=== PATIENT | female | born 1960 | race African-American/Black ===

== ENCOUNTER 2017-01-21 15:21 | Emergency (ER) | payer MEDICARE ==
[~2017-01-21 15:21] MED LIST: CLOT1CRE TOP; DESE1CRE EX; DICL50 PO
[2017-01-21 15:35] VITALS: BP 99/54; PULSE 81; RESP 14; TEMP 98.6; O2SAT 99
--- NOTE | 2017-01-21 16:19 | PD ---
HPI Chief Complaint: Medical Clearance Time Seen by Provider: 16:03 Travel History International Travel<30 days: No Contact w/Intl Traveler<30days: No Traveled to known affect area: No History of Present Illness HPI So 56 year-old woman who presents to the emergency department after she was found sleeping on a bus stop and a bystander called EMS. After being awoken she reports that she feels hot and dehydrated. History Past Medical History Medical History: Denies Significant Hx Social History Alcohol Use: Yes (HOLIDAYS) Tobacco Use: No Allergies-Medications (Allergen,Severity, Reaction): Coded Allergies: No Known Allergies (Unverified , 10/27/15) Reported Meds & Prescriptions Reported Meds & Active Scripts Active Clotrimazole 1 % Cre 1 % EX Q12HR 7 Days Lotrimin Cream (Clotrimazole) 15 Gm Cr 1 Applic TOP BID Voltaren (Diclofenac Sodium) 50 Mg Tabec 50 Mg PO TID Review of Systems Except as stated in HPI: all other systems reviewed are Neg Physical Exam Narrative GENERAL: Well-appearing 56 year-old woman, disheveled, nontoxic. SKIN: Focused skin assessment warm/dry. HEAD: Atraumatic. Normocephalic. EYES: Pupils equal and round. No scleral icterus. No injection or drainage. ENT: No nasal bleeding or discharge. Mucous membranes pink and moist. NECK: Trachea midline. No JVD. CARDIOVASCULAR: Regular rate and rhythm. No murmur appreciated. RESPIRATORY: No accessory muscle use. Clear to auscultation. Breath sounds equal bilaterally. GASTROINTESTINAL: Abdomen soft, non-tender, nondistended. Hepatic and splenic margins not palpable. MUSCULOSKELETAL: No obvious deformities. No clubbing. No cyanosis. No edema. NEUROLOGICAL: Awake and alert. No obvious cranial nerve deficits. Motor grossly within normal limits. Normal speech. Data Data Last Documented VS Vital Signs Date Time Temp Pulse Resp B/P (MAP) Pulse Ox O2 Delivery O2 Flow Rate FiO2 01/21/17 15:35 98.6 81 14 99/54 (69) 99 MDM Medical Decision Making Medical Screen Exam Complete: Yes Emergency Medical Condition: Yes Differential Diagnosis Dehydration, homelessness, heat exhaustion Narrative Course Medical decision-making new para 56 year-old woman with complaints of feeling dehydrated. She was given by mouth fluids. She is stable for discharge. She is given resources for homelessness. Diagnosis Primary Impression: Mild dehydration Patient Instructions: General Instructions Additional Instructions: Return to the emergency department for any new or worsening symptoms. Med/Other Pt SpecificInfo: No Change to Meds Disposition: 01 DISCHARGE HOME Condition: Stable Richie Verde MD Jan 21, 2017 16:19
== END 2017-01-21 16:45 | disposition home or self-care (01) ==
LOC: NEPD 15:21
DX: E86.0 Dehydration (principal); Z79.899 Other long term (current) drug therapy
CPT/HCPCS: 99283

== ENCOUNTER 2017-02-06 20:42 | Emergency (ER) | payer MEDICARE ==
[~2017-02-06] VITALS: Ht 165.1 cm; Wt 70.5 kg
[2017-02-06 20:48] VITALS: BP 133/77; PULSE 97; RESP 16; TEMP 98; O2SAT 96
[2017-02-06] MEDS ORDERED: IBUP-232 PO (21:44)
[2017-02-06] MEDS ORDERED: IBUPROFEN 600 MG TAB PO ONE (21:45)
--- NOTE | 2017-02-06 21:47 | PD ---
HPI Chief Complaint: Pain: Acute or Chronic Time Seen by Provider: 21:43 Travel History International Travel<30 days: No Contact w/Intl Traveler<30days: No Traveled to known affect area: No History of Present Illness HPI 56-year-old black female presents to emergency Department with complaints of right ankle pain. She states that she developed pain after walking in [employer] this evening. She states the pain is mild to moderate. Worse with ambulation. She denies any direct trauma. She states that she's had similar pain in the past. No other complaint. PFSH Past Medical History Anemia: Yes Anxiety: Yes Diminished Hearing: No Schizophrenia: Yes Social History Alcohol Use: Yes (HOLIDAYS) Tobacco Use: No Substance Use: No Allergies-Medications (Allergen,Severity, Reaction): Coded Allergies: No Known Allergies (Unverified , 02/06/17) Reported Meds & Prescriptions Reported Meds & Active Scripts Active Clotrimazole 1 % Cre 1 % EX Q12HR 7 Days Lotrimin Cream (Clotrimazole) 15 Gm Cr 1 Applic TOP BID Voltaren (Diclofenac Sodium) 50 Mg Tabec 50 Mg PO TID Review of Systems Except as stated in HPI: all other systems reviewed are Neg Physical Exam Narrative GENERAL: This is a well-nourished, well-developed patient, in no apparent distress. The patient is ambulating freely in examination room. She does not appear to be in any distress whatsoever. SKIN: No rashes, ecchymoses or lesions. Warm and dry. HEAD: Atraumatic. Normocephalic. EYES: PERRL, EOMI, no discharge or injection. No scleral icterus. EARS: Clear NOSE: Nasal turbinates appear normal. THROAT: Mucosa pink and moist. Airway patent. NECK: Trachea midline. supple, moves head freely. LUNGS: Clear to auscultation. CV: Regular in rhythm. ABDOMEN: Soft nontender. EXT: No clubbing cyanosis. Trace bilateral pedal edema. Examination of the right lower extremity patient complains of tenderness to the lateral aspect of the ankle. There is no obvious deformity. No bony tenderness. She has neurovascular intact. Superficial excoriations Data Data Last Documented VS Vital Signs Date Time Temp Pulse Resp B/P (MAP) Pulse Ox O2 Delivery O2 Flow Rate FiO2 02/06/17 20:48 98.0 97 16 133/77 (95) 96 Room Air Orders Orders Ibuprofen (Motrin) (02/06/17 21:45) MDM Medical Decision Making Medical Screen Exam Complete: Yes Emergency Medical Condition: Yes Medical Record Reviewed: Yes Differential Diagnosis MDM: High Differential diagnoses: Fracture, sprain, strain, dislocation, contusion, neurovascular injury Narrative Course Patient's given Motrin 600 mg by mouth. Diagnosis Primary Impression: Right ankle pain Qualified Codes: M25.571 - Pain in right ankle and joints of right foot Patient Instructions: General Instructions Additional Instructions: Rest. Elevation. Ice packs for the next 3 days. Limited activity. Medications as directed Follow-up with an orthopedist or your doctor in one week. Return to the ER if any problems Med/Other Pt SpecificInfo: Prescription(s) given Scripts Ibuprofen (Ibuprofen) 600 Mg Tab 600 MG PO Q8H Y for PAIN, #30 TAB 0 Refills Prov: Steve Tanner MD 02/06/17 Disposition: 01 DISCHARGE HOME Condition: Stable Wilberto Torres Feb 06, 2017 21:47
== END 2017-02-06 21:54 | disposition home or self-care (01) ==
LOC: NEPK 20:42
DX: M25.571 Pain in right ankle and joints of right foot (principal); D64.9 Anemia, unspecified; F41.9 Anxiety disorder, unspecified; F20.9 Schizophrenia, unspecified; Z79.899 Other long term (current) drug therapy
CPT/HCPCS: 99283

== ENCOUNTER 2017-02-08 19:04 | Inpatient (IN) | payer MEDICARE, OTHER ==
[~2017-02-08] VITALS: Ht 167.6 cm; Wt 73.6 kg
[~2017-02-08 19:04] MED LIST changes: +IBUP-232 PO
[2017-02-08 19:26] VITALS: BP 136/90; PULSE 73; RESP 16; TEMP 98.2; O2SAT 100
--- NOTE | 2017-02-08 19:29 | PD ---
HPI Chief Complaint: Psychiatric Symptoms Time Seen by Provider: 19:11 Travel History International Travel<30 days: No Contact w/Intl Traveler<30days: No History of Present Illness HPI Patient is a 56-year-old female brought into the emergency Department under Black act for psychiatric evaluation. According to the Black act report patient is a poor historian, her thought process is disorganized and she could suffer from self-neglect. Patient has a history of schizophrenia she is not taking medications for this. Patient admitted to a history of hallucinations. She denies any suicidal or homicidal ideations. She states that the Lord is her guide. She states that she is a world traveler. She has no physical complaints at this time. [facility], [facility] Past Medical History Anemia: Yes Anxiety: Yes Diminished Hearing: No Schizophrenia: Yes Social History Alcohol Use: Yes (HOLIDAYS) Tobacco Use: No Substance Use: No Allergies-Medications (Allergen,Severity, Reaction): Coded Allergies: No Known Allergies (Unverified , 02/08/17) Reported Meds & Prescriptions Reported Meds & Active Scripts Active Review of Systems Except as stated in HPI: all other systems reviewed are Neg Psychiatric: Positive: Disorder of Thought Physical Exam Narrative GENERAL: Well-developed, well-nourished, well manicured female. SKIN: Warm and dry. HEAD: Atraumatic. Normocephalic. EYES: Pupils equal and round. No scleral icterus. No injection or drainage. ENT: No nasal bleeding or discharge. Mucous membranes pink and moist. NECK: Trachea midline. No JVD. CARDIOVASCULAR: Regular rate and rhythm. RESPIRATORY: No accessory muscle use. Clear to auscultation. Breath sounds equal bilaterally. GASTROINTESTINAL: Abdomen soft, non-tender, nondistended. Hepatic and splenic margins not palpable. MUSCULOSKELETAL: Extremities without clubbing, cyanosis, or edema. No obvious deformities. NEUROLOGICAL: Awake and alert. No obvious cranial nerve deficits. Motor grossly within normal limits. Five out of 5 muscle strength in the arms and legs. Normal speech. PSYCHIATRIC: Appropriate mood and affect; insight and judgment normal. Data Data Last Documented VS Vital Signs Date Time Temp Pulse Resp B/P (MAP) Pulse Ox O2 Delivery O2 Flow Rate FiO2 02/08/17 19:26 98.2 73 16 136/90 (105) 100 Orders Orders Complete Blood Count With Diff (02/08/17 19:11) Comprehensive Metabolic Panel (02/08/17 19:11) Urinalysis - C+S If Indicated (02/08/17 19:11) Psych Screen (02/08/17 19:11) Drug Screen, Random Urine (02/08/17 19:11) MDM Medical Decision Making Medical Screen Exam Complete: Yes Emergency Medical Condition: Yes Medical Record Reviewed: Yes Interpretation(s) Vital Signs Date Time Temp Pulse Resp B/P (MAP) Pulse Ox O2 Delivery O2 Flow Rate FiO2 02/08/17 19:26 98.2 73 16 136/90 (105) 100 Differential Diagnosis Schizophrenia versus bipolar disorder versus depression versus psychosis versus other Narrative Course Patient is a 56-year-old female brought in under [place] due to concern for self neglect, her disorganized thought process, and for being a poor historian. Patient's vital signs are stable, she is refusing any blood work at this time. She is alert and cooperative otherwise. She acknowledges a history of psychiatric illness. She denies any suicidal or homicidal ideations. She denies any previous suicide attempt. Patient is well groomed, alert and appears well. She is medically cleared at this time for psychiatric evaluation. Diagnosis Primary Impression: Medical clearance for psychiatric admission Condition: Stable Bernie Soto Feb 08, 2017 19:29
[2017-02-08 22:36] VITALS: BP 113/72; PULSE 76; RESP 18; O2SAT 97
[2017-02-09 06:40] VITALS: RESP 18
[2017-02-09 10:50] VITALS: BP 143/77; PULSE 75; RESP 18
[2017-02-09 11:55] LABS: BLOOD, URINE NEG (NEG); COMMENT (UR) CULT NOT INDICATED; CULTURE IF INDICATED CULT NOT INDICATED; GLUCOSE,URINE NEG (NEG); KETONE, URINE NEG (NEG); NITRITE,URINE NEG (NEG); PH, URINE 6.5 (5.0-8.5); SQUAMOUS EPITHELIAL CELL URINE 3 /hpf (0-5); URINE COLOR LIGHT-YELLOW (YELLW/STRAW)
[2017-02-09] MEDS ORDERED: ALUMINUM/MAGNESIUM/SIMETH 30 ML CUP PO PRN (14:15)
[2017-02-09] MEDS ORDERED: LORazepam 2 MG/ML VIAL IM PRN (14:15)
[2017-02-09] MEDS ORDERED: MAGNESIUM HYDROXIDE SUSP 30 ML CUP PO PRN (14:15)
--- NOTE | 2017-02-09 14:24 | HHI.HP ---
Provisional Diagnosis Admission Date [place] I. Schizophrenia, disorganized type Certification of Person's Competence To Provide Express and Informed Consent I have personally examined Mellissa Drake , a person being served at [facility] on, Feb 09, 2017 14:13. Express and informed consent means consent voluntarily given in writing, by a competent person, after sufficient explanation and disclosure of the subject matter involved to enable the person to make a knowing and willful decision without any element of force, fraud, deceit, duress, or other form of constraint or coercion. This person is 18 years of age or older, is not now known to be incompetent to consent to treatment with a guardian advocate, and does not have a health care surrogate or proxy currently making medical treatment decisions. I have found this person to be one of the following: [x] Competent to provide express and informed consent, as defined above, for voluntary admission to this facility and is competent to provide express and informed consent for treatment. He/she has the consistent capacity to make well reasoned, willful, and knowing decisions concerning his or her medical or mental health treatment. The person fully and consistently understands the purpose of the admission for examination/placement and is fully capable of personally exercising all rights assured under [place] Incompetent to provide express and informed consent to voluntary admission, and this is incompetent to provide express and informed consent to treatment. The person must be transferred to involuntary status and a petition for a guardian advocate filed with the Circuit Court. [] Refusing to provide express and informed consent to voluntary admission but is competent to provide express and informed consent for treatment. The person must be discharged or transferred to involuntary status. Form shall be completed within 24 hours of a person's arrival at the receiving facility and filed in the clinical record of each person: 1. Admitted on a voluntary basis 2. Permitted to provide express and informed consent to his/her own treatment 3. Allowed to transfer from involuntary to voluntary status 4. Prior to permitting a person to consent to his or her own treatment after having been previously found incompetent to consent to treatment. History of Present Illness Capacity: Has Capacity HPI 56-year-old female brought in under a Black act for inability to care for self. Patient remains a poor historian. She does admit to a history of schizophrenia and has been previously treated in [place]. She states she came to [place] approximately one year ago and came to [place] approximately one month ago. She does describe herself as a "world traveler". However, she continues to exhibit looseness of associations and is unable to provide reasonable explanations as to why she travels, where she lives, how she lives, her family is, etc. She does state if she continues to travel the world , she will eventually run into "a cousin". She also admits to having taken Seroquel in the past. Finally, she would like case management but is otherwise unable to determine how she will take care of herself. She does deny the use of alcohol and drugs. Review of Systems Except as stated in HPI: all other systems reviewed are Neg Past Psych History Psychological trauma history Unknown regarding psychological trauma but the patient has been admitted for psychiatric reasons previously. Violence risk - others (6 mos) Minimal risk of violence towards others. Violence risk - self (6 mos) Unable to care for self and high risk of violence to self. Substance Abuse History Drugs/Alcohol past 12 months Denied Past Family Social History Coded Allergies: No Known Allergies (Unverified , 02/08/17) Discontinued Scripts Ibuprofen (Ibuprofen) 600 Mg Tab, 600 MG PO Q8H Y for PAIN, #30 TAB 0 Refills Prov:Steve Tanner MD 02/06/17 Clotrimazole (Topical) (Clotrimazole) 1 % Cre, 1 % EX Q12HR for 7 Days, TUBE Prov:Shahid Skinner MD 10/13/15 Clotrimazole (Topical) (Lotrimin Cream) 15 Gm Cr, 1 APPLIC TOP BID, #1 TUBE Prov:Marilee Balderas MD 10/06/15 Diclofenac Sod (Voltaren) 50 Mg Tabec, 50 MG PO TID, #21 TAB Prov:Marilee Balderas MD 09/07/15 Family History Unknown. Social History Patient is homeless. Unable to name the numbers or names of any family members. She does not work. She does apparently receives some form of Medicare /Social Security disability. She does not have a history of alcoholism or substance abuse. Patient's Strengths (min. 2) Resilient and has access to healthcare. Physical Exam GENERAL: SKIN: Warm and dry. HEAD: Normocephalic. EYES: No scleral icterus. No injection or drainage. NECK: Supple, trachea midline. No JVD or lymphadenopathy. CARDIOVASCULAR: Regular rate and rhythm without murmurs, gallops, or rubs. RESPIRATORY: Breath sounds equal bilaterally. No accessory muscle use. GASTROINTESTINAL: Abdomen soft, non-tender, nondistended. MUSCULOSKELETAL: No cyanosis, or edema. BACK: Nontender without obvious deformity. No CVA tenderness. Vital Signs Vital Signs Date Time Temp Pulse Resp B/P (MAP) Pulse Ox O2 Delivery O2 Flow Rate FiO2 02/09/17 10:50 75 18 143/77 (99) Room Air 02/08/17 22:36 97 02/08/17 19:26 98.2 Lab Results Test 02/09/17 11:22 Urine Color LIGHT-YELLOW Urine Turbidity CLEAR Urine pH 6.5 Urine Specific [place] 1.014 Urine Protein NEG mg/dL Urine Glucose (UA) NEG mg/dL Urine Ketones NEG mg/dL Urine Occult Blood NEG Urine Nitrite NEG Urine Bilirubin NEG Urine Urobilinogen LESS THAN 2.0 MG/DL Urine Leukocyte Esterase TRACE Urine RBC LESS THAN 1 /hpf Urine WBC LESS THAN 1 /hpf Urine Squamous Epithelial Cells 3 /hpf Microscopic Urinalysis Comment CULT NOT INDICATED Urine Opiates Screen NEG Urine Barbiturates Screen NEG Urine Amphetamines Screen NEG Urine Benzodiazepines Screen NEG Urine Cocaine Screen NEG Urine Cannabinoids Screen NEG Mental Status Examination Speech: Hesitant Orientation: Person, Place Memory: Unremarkable Thought Process: Loose Association Thought Content: Bizarre thinking Hallucination Type: None Attention and Concentration: Abnormal Suicidal Ideation: No Previous Suicide Attempts: No Homicidal Ideation: No Previous Homicide Attempts: No Insight: Poor Judgment: Unrealistic Affect: Anxious Affect if Inappropriate: Blunt Mood: Anxious Motor Activity: Normal gait Assessment & Plan Problem List: (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 56-year-old female under a Black act for inability to care for self. Patient has a history of schizophrenia and she is not currently being treated for it. She is a poor historian and demonstrates loose associations. She is living on the [address] and is unable to provide information about living arrangements, medications, money, etc. This physician feels the patient is at significant risk for either self-harm or self-neglect and she is therefore being admitted. The patient will receive a CBC and comprehensive metabolic panel to determine if any infectious process or metabolic process is causing or contributing to the patient's confusion and psychosis. We will also obtain thyroid stimulating hormone levels, vitamin B-12 and vitamin D levels to determine if any deficiencies in this area are causing or contributing to her psychosis and disorganization. She will receive an EKG to determine her cardiac conduction status prior to receiving antipsychotic or other psychotropic medications. This physician is also asking for case management to be involved, both for information gathering and to assist the patient with disposition planning. This physician did speak with the patient's nurse, Jordyn, regarding her disorganized thought process. Finally, this physician is interested in obtaining a occupational therapy consult to determine a baseline functionality prior to disposition. Donell Hinojosa MD Feb 09, 2017 14:24
[2017-02-09 15:17] VITALS: BP 138/81; PULSE 72; RESP 18; O2SAT 100
[2017-02-09 17:03] VITALS: BP 125/64; PULSE 67; RESP 18; TEMP 97.9; O2SAT 99
[2017-02-09] MEDS: LORazepam 1 MG TAB PO PRN (23:13)
[2017-02-10 06:19] VITALS: BP 130/66; PULSE 78; RESP 15; TEMP 97.4; O2SAT 100
[2017-02-10] MEDS: LORazepam 1 MG TAB PO PRN (09:38)
--- NOTE | 2017-02-10 13:16 | HHI.PYPN ---
Subjective Remarks Pt seen and discussed with staff. Chart reviewed. Pt was agitated earlier this morning (yelling at water) and received ativan x1 dose. She is now calm and cooperative. She remains paranoid ands somewhat disorganized but is able to give hx of previous diagnosis of schizophrenia. She reports that she took seroquel in the past and it helped with depression. She denied any side effects in the past and states it was helpful in the past. "I took it for a long time". She c/o of poor sleep and high anxiety. No SI/HI. Pt states that she wants to leave hospital and presses for discharge. Objective Alert: Yes [place]: Person, Place, Situation Mood: Calm Affect: Flat Memory Intact: Immediate, Recent Hallucinations: Auditory Delusions: Yes Delusion Type: Paranoid Suicidal: Ideation (denies) Homicidal: Ideation (denies) Insight/Judgment limited Remarks disheveled Vitals/IOs Vital Signs Date Time Temp Pulse Resp B/P (MAP) Pulse Ox O2 Delivery O2 Flow Rate FiO2 02/10/17 06:19 97.4 78 15 130/66 (87) 100 02/09/17 15:17 Room Air Assessment & Plan Problem List: (1) Chronic disorganized schizophrenia ICD Codes: F20.1 - Disorganized schizophrenia Assessment & Plan Start seroquel trial for psychosis. Will place on involuntary due to pt refusing to stay voluntarily in hospital, but as of now pt can consent to medications. Will order 2nd opinion. Estimated LOS: days Justification for Cont. Inpt. impairments in self care. Laura Pearson MD Feb 10, 2017 13:16
--- NOTE | 2017-02-10 16:33 | EKG ---
Date Performed: 02/10/2017 Time Performed: 08:52:28 PTAGE: 56 years EKG: Sinus rhythm WITH SINUS ARRHYTHMIA POSSIBLE LEFT ATRIAL ENLARGEMENT LOW QRS VOLTAGE IN PRECORDIAL LEADS Compared to prior tracing no significant change BORDERLINE ECG PREVIOUS TRACING : 10/06/2015 01.06 DOCTOR: Donell Lemus Interpretating Date/Time 02/10/2017 16:32:37
[2017-02-10 18:00] VITALS: BP 135/83; PULSE 78; RESP 17; TEMP 97.9; O2SAT 100
[2017-02-10] MEDS ORDERED: QUEtiapine FUMARATE 100 MG TAB PO SCH (21:00)
--- NOTE | 2017-02-11 13:19 | HHI.PYPN ---
Subjective Remarks Pt seen and discussed with staff. She took seroquel yesterday evening and has been more calm and less labile today. Thought process is more organized. She attended to ADLs today. She remains paranoid and has been pressing for discharge , stating that she has important business. Sleep improved but still experiencing awakening throughout the night. No medication side effects. NO SI/ HI Objective Alert: Yes [place]: Person, Place, Date, Situation Mood: Other (irritable) Affect: Restricted Memory Intact: Immediate, Recent Hallucinations: Auditory Delusions: Yes Delusion Type: Paranoid Suicidal: Ideation (denies) Homicidal: Ideation (denies) Insight/Judgment poor Vitals/IOs Vital Signs Date Time Temp Pulse Resp B/P (MAP) Pulse Ox O2 Delivery O2 Flow Rate FiO2 02/10/17 18:00 97.9 78 17 135/83 (100) 100 02/09/17 15:17 Room Air Assessment & Plan Problem List: (1) Chronic disorganized schizophrenia ICD Codes: F20.1 - Disorganized schizophrenia Assessment & Plan Pt improving. Will continue seroquel titration. Estimated LOS: days Justification for Cont. Inpt. impairments in reality testing. Laura Pearson MD Feb 11, 2017 13:19
[2017-02-11] MEDS: LORazepam 1 MG TAB PO PRN (20:34)
[2017-02-11] MEDS: ACETAMINOPHEN 325 MG TAB PO PRN (20:37)
[2017-02-11] MEDS ORDERED: QUEtiapine FUMARATE 200 MG TAB PO SCH (21:00)
[2017-02-12 05:54] VITALS: BP 136/65; PULSE 68; RESP 16; TEMP 97.4; O2SAT 100
--- NOTE | 2017-02-12 09:32 | HHI.PYPN ---
Subjective Remarks Patient seen and examined with counselor and nurse. Chart reviewed. Case discussed with nursing staff. On my examination today, the patient presents as mildly irritable but not aggressive or combative. She is a somewhat vague and guarded historian. 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 Hallucinations to myself." She insists, however, that her mental illness issues are in her past, and she denies SI/HI/ AVH now. She is willing to accept psychotropic medications. She says her main purpose in being in the hospital is to get case management services as she is presently homeless. Denies side effects from medications. Denies physical complaints. She tells me that she is willing to remain on the unit voluntarily. Review of Systems ROS Limitations: Poor Historian Except as stated in HPI: all other systems reviewed are Neg Objective Alert: Yes [place]: Person, Place, Date Mood: Other (somewhat irritable) Affect: Restricted Memory Intact: Comment (not formally assessed) Hallucinations: Other (Denies AVH) Delusions: Yes Delusion Type: Other (guarded) Suicidal: Ideation (Denies SI) Homicidal: Ideation (Denies HI) Insight/Judgment Poor Remarks No motor abnormalities noted. Thought process linear. Grooming and hygiene fair. Labs Labs reviewed. Patient refused labs this morning per nursing staff. 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 Patient is tolerating current dose well without side effects. Continue to monitor on an inpatient unit. Continue other medications and care as ordered. Patient may sign voluntary and consent for medications. Justification for Cont. Inpt. Medication changes Discharge Planning Patient appears to be improving with current therapy. Anticipate discharge within the next few days. Neftali Taylor disease case manager to see for case management requests. Request HC Surrog/Guard Advoc?: No Shankar Graham MD Feb 12, 2017 09:32
[2017-02-12 16:58] VITALS: BP 110/64; PULSE 67; RESP 18; TEMP 98; O2SAT 98
[2017-02-12] MEDS: ACETAMINOPHEN 325 MG TAB PO PRN (20:37)
[2017-02-12] MEDS: LORazepam 1 MG TAB PO PRN (20:37)
[2017-02-12] MEDS ORDERED: QUEtiapine FUMARATE 300 MG TAB PO SCH (21:00)
[2017-02-13] MEDS: ACETAMINOPHEN 325 MG TAB PO PRN (00:52)
[2017-02-13 06:14] VITALS: BP 128/72; PULSE 63; RESP 18; TEMP 97; O2SAT 100
--- NOTE | 2017-02-13 10:48 | PD.TTN ---
Patient Problems 1. Discharge planning 2. Medication compliance 3. Knowledge deficit 4. Lack of coping skills Progress Toward Goals Provider Present: Dr. Jared Graham Provider Input: Pt medication regiment will be evaluated if she agrees to continue treatment as she has suggested that she possibly wishes to be discharged. Nurse(s) Present: Deanna Wall RN Nurse(s) Input: Pt appears entitled, somatically focused, agitated at times and with bizarre thoughts. Psychiatric Counselors Present: MICKEY Burgos Psych Therapist Input: Pt appears calm, cooperative, appropriate, organized and oriented. Insight into condition and need for care appears limited. No noted agitation or aggression. Thought content appears bizarre at times regarding payee in particular. Use of coping skills is unknown as pt will not discuss such topics as she is poorly motivated for treatment. Group Spec/RT/OT/SPARKS Present: BRIDGER Flower Group Spec/RT/OT/SPARKS Input: Pt does not attend groups. Discharge Plan SMA, Homeless plan Documentation Scribe: MICKEY Burgos Jonathan LMHC Feb 13, 2017 10:48
[2017-02-13] MEDS ORDERED: QUET1TAB10 PO (12:59)
--- NOTE | 2017-02-13 12:59 | HHI.DS ---
Psychiatry Discharge Summary Inpatient Psychiatric care?: Yes Advance Directive: No Reason Not Provided: Due to Patient Condition Mental Health AdvanceDirective: No Health Care Proxy: No Admission Admission Date Feb 09, 2017 at 14:12 Admission Diagnosis: (1) Chronic disorganized schizophrenia ICD Code: F20.1 - Disorganized schizophrenia Brief History 56-year-old female brought in under a Black act for inability to care for self. Patient remains a poor historian. She does admit to a history of schizophrenia and has been previously treated in [place]. She states she came to [place] approximately one year ago and came to [place] approximately one month ago. She does describe herself as a "world traveler". However, she continues to exhibit looseness of associations and is unable to provide reasonable explanations as to why she travels, where she lives, how she lives, her family is, etc. She does state if she continues to travel the world , she will eventually run into "a cousin". She also admits to having taken Seroquel in the past. Finally, she would like case management but is otherwise unable to determine how she will take care of herself. She does deny the use of alcohol and drugs. Tobacco Use In Past 30 Days: Cognitive Impairment Alcohol Use: Never Hospital Course Patient was admitted to a locked, inpatient psychiatric unit. Appropriate precautions were in place throughout patient's hospital stay. Patient was seen and examined on the unit by psychiatry and also visited by counselor. Psychotropic medications were adjusted. Patient tolerated medications well without side effects. Patient had improvement in presenting psychiatric symptoms during the course of her hospital stay. There was no evidence of any suicidality or homicidality on the inpatient unit. The patient's behavior improved somewhat with the benefit of psychopharmacologic treatment, although even on discharge she was noted to be somewhat demanding and abrasive. There has been no evidence of any significant self-care deficit on the inpatient unit. On the day of discharge: Patient seen and examined. Chart reviewed. Case discussed in treatment team. No significant behavioral disturbances noted overnight. On my examination today, the patient is requesting discharge from the inpatient psychiatric unit. She denies any suicidal or homicidal ideation, intent or plan on direct questioning and contracts for safety. Mood is fair and I can elicit no depressive or hypomanic/manic symptoms. She denies any audiovisual hallucinations, and I can elicit no delusional beliefs, although the patient did describe what sound like some chronic, perhaps fixed paranoid delusions to the counselor. She denies side effects from medications. She is agreeable to following up with outpatient mental health providers. She does have a loose tooth that she would like tended to but otherwise offers no physical complaints. Weighing the acute, chronic, and protective factors and based on the available evidence, I chief executive to a reasonable degree of medical certainty that the patient is at low imminent risk of harm to self or others from a mental illness as defined under the Black act, and her level of function appears adequate for outpatient care. I have recommended that she remain on the unit for additional stabilization but she has declined. I have no basis to retain the patient involuntarily at this time. Patient to be discharged today with psychiatric follow-up as arranged by counselor. Patient also to follow-up with primary care and with dentistry. I have counseled the patient regarding warning signs for need to return to the psychiatric emergency room as part of the general safety plan. Results Blood Pressure 128 / 72 Vital Signs Date Time Temp Pulse Resp B/P (MAP) Pulse Ox O2 Delivery O2 Flow Rate FiO2 02/13/17 06:14 97.0 63 18 128/72 (90) 100 02/09/17 15:17 Room Air Laboratory Tests Test 02/09/17 11:22 Urine Color LIGHT-YELLOW Urine Turbidity CLEAR Urine pH 6.5 Urine Specific [place] 1.014 Urine Protein NEG mg/dL Urine Glucose (UA) NEG mg/dL Urine Ketones NEG mg/dL Urine Occult Blood NEG Urine Nitrite NEG Urine Bilirubin NEG Urine Urobilinogen LESS THAN 2.0 MG/DL Urine Leukocyte Esterase TRACE Urine RBC LESS THAN 1 /hpf Urine WBC LESS THAN 1 /hpf Urine Squamous Epithelial Cells 3 /hpf Microscopic Urinalysis Comment CULT NOT INDICATED Urine Opiates Screen NEG Urine Barbiturates Screen NEG Urine Amphetamines Screen NEG Urine Benzodiazepines Screen NEG Urine Cocaine Screen NEG Urine Cannabinoids Screen NEG Summary of Procedures None done Imaging None done Pending results at discharge: No Medications # of Antipsychotic meds at D/C: 1 Approp Antipsych med options 1 - Minimum of three failed multiple trials of monotherapy. 2 - Documented plan to taper to monotherapy due to previous use of multiple meds OR cross-taper in progress at D/C. 3 - Documentation of augmentation of Clozapine. 4 - Justification other than those listed in allowable values 1-3, document here : Discharge Discharge Date: Feb 13, 2017 Discharge Diagnosis: (1) Undifferentiated schizophrenia Diagnosis: Principal ICD Code: F20.3 - Undifferentiated schizophrenia Mental Status Exam at Disch Patient is in hospital attire. Patient is fairly well groomed and maintaining basic hygiene. Patient is awake and alert and oriented person and hospital at least. No evidence of delirium. No motor abnormalities appreciated. Speech is within normal limits for rate, tone, volume. Language and fund of knowledge average. Focus and concentration intact. Memory grossly intact on clinical exam. Mood is fair. Affect is blunted. Thought process linear. No delusions elicited. Denies audiovisual hallucinations and does not appear internally stimulated. Denies suicidal or homicidal ideation, intent, or plan and contracts for safety. Insight and judgment seem fair to poor at best. Pt Condition on Discharge: Stable Discharge Disposition: Discharge Home Discharge Instructions Diet Instructions: As Tolerated, No Restrictions Activities you can perform: Weight Bearing as Deyanira Scheduled Appointment: as per counselor's notes New Medications: Quetiapine (Quetiapine) 300 Mg Tab 300 MG PO HS for Mental Health for 15 Days, TAB 1 Refill Discharge Time <= 30 minutes Discharge/Advance Care Plan Health Problems: (1) Undifferentiated schizophrenia Goals to promote your health * To prevent worsening of your condition and complications * To maintain your health at the optimal level Directions to meet your goals Take your medications as prescribed Follow your dietary instruction Follow activity as directed Keep your appointments as scheduled Take your immunizations and boosters as scheduled If your symptoms worsen call your PCP, if no PCP go to Urgent Care Center or Emergency Room For 11/12 questions related to your inpatient stay or results of tests pending at discharge, please contact Dr. Shankar Graham at Smoking is Dangerous to Your Health. Avoid second hand smoking Shankar Graham MD Feb 13, 2017 12:59
== END 2017-02-13 16:28 | disposition home or self-care (01) | DRG 885 ==
LOC: NEPD 19:04 → NEDA 02-09 14:12 → H270 02-09 15:43
PROVIDERS: ADMIT Psychiatry & Neurology Psychiatry; ATTEND Psychiatry & Neurology Psychiatry
DX: F20.3 Undifferentiated schizophrenia (principal); Z59.0 Homelessness; F41.9 Anxiety disorder, unspecified
CPT/HCPCS: 80307; 81001; 93005; J2060

== ENCOUNTER 2017-04-03 13:26 | Inpatient (IN) | payer MEDICARE ==
[~2017-04-03] VITALS: Ht 162.6 cm; Wt 74.2 kg
[~2017-04-03 13:26] MED LIST changes: -CLOT1CRE TOP; -DESE1CRE EX; -DICL50 PO; -IBUP-232 PO; +QUET1TAB10 PO
[2017-04-03] MEDS ORDERED: ALUMINUM/MAGNESIUM/SIMETH 30 ML CUP PO PRN (17:30)
[2017-04-03] MEDS ORDERED: MAGNESIUM HYDROXIDE SUSP 30 ML CUP PO PRN (17:30)
[2017-04-03] MEDS ORDERED: ACETAMINOPHEN 325 MG TAB PO PRN (17:30)
[2017-04-03 17:53] VITALS: BP 107/73; PULSE 67; RESP 17; TEMP 97.4; O2SAT 95
[2017-04-03] MEDS ORDERED: ZYPR5TAB PO (17:58)
[2017-04-04] MEDS: NICOTINE 21 MG/24 HR PATCH T-DERMAL SCH (09:00)
[2017-04-04] MEDS: REMOVE OLD PATCH T-DERMAL SCH (09:00)
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
[2017-04-04] MEDS ORDERED: ARIPiprazole 10 MG TAB PO SCH (09:15)
[2017-04-04] MEDS ORDERED: guaiFENesin E.R. 600 MG TAB PO PRN (11:15)
[2017-04-04 11:46] LABS: ANION GAP 7 MEQ/L (5-15); BICARBONATE 30.6 MEQ/L (21.0-32.0); BLOOD UREA NITROGEN 21 MG/DL (7-18); CHLORIDE 104 MEQ/L (98-107); GLOMERULAR FILTRATION RATE 69 ML/MIN (>89); POTASSIUM 3.9 MEQ/L (3.5-5.1); SODIUM (NA) 142 MEQ/L (136-145)
[2017-04-04 11:48] LABS: LDL CHOLESTEROL 138 MG/DL (0-99)
[2017-04-04 14:49] LABS: TRANSFERRIN IRON PROFILE 266 MG/DL (200-360)
[2017-04-04 14:51] LABS: FERRITIN 60 NG/ML (8-252)
[2017-04-04] MEDS: LORazepam 1 MG TAB PO PRN (15:03)
[2017-04-04 16:50] VITALS: BP 121/65; PULSE 69; RESP 18; TEMP 97.6; O2SAT 98
[2017-04-04 17:11] LABS: HEMOGLOBIN A1a 1.2 %; HEMOGLOBIN A1b 1.8 %; HEMOGLOBIN LA1C 2.1 %
--- NOTE | 2017-04-05 08:05 | HHI.PYPN ---
Subjective Chief Complaint: "I need to be stabilized on meds." Remarks Patient seen and examined with nurse. Chart reviewed. Case discussed with nursing staff. Patient noted to be bizarre, irritable and argumentative with peers on the unit. On my examination today, the patient is guarded. She is quite distracted and still appears to be responding to internal stimuli. She denies any SI or HI but it is not clear that she is reliable to contract for safety. She denies side effects from medications. No physical complaints. She is starting to be discharge focused, but I have encouraged her to remain on the unit for stabilization and to address some of her social issues as we are able, and I have asked the counselor to work with her on these issues. Review of Systems ROS Limitations: Psychotic, Poor Historian Except as stated in HPI: all other systems reviewed are Neg Mental Status Examination Appearance: Disheveled (remains fairly disheveled) Consciousness: Alert Orientation: x4 Motor Activity: Normal gait Speech: Unremarkable, Other (rambling) Language: Adequate Fund of Knowledge: Adequate Attention and Concentration: Easily Distracted Memory: Impaired (perhaps some degree of confabulation) Mood: Appropriate Affect: Blunt (remains blunted) Thought Process & Associations: Circumstantial Thought Content: Bizarre thinking Hallucination Type: Other (Again denies AVH but appears int stim) Delusion Type: Other (Remains guarded) Suicidal Ideation: No (unreliable to contract for safety) Homicidal Ideation: No Insight: Fair Judgment: Impulsive Results Labs Test 04/04/17 10:10 Blood Urea Nitrogen 21 MG/DL Creatinine 1.00 MG/DL Random Glucose 72 MG/DL Calcium Level 9.5 MG/DL Sodium Level 142 MEQ/L Potassium Level 3.9 MEQ/L Chloride Level 104 MEQ/L Carbon Dioxide Level 30.6 MEQ/L Anion Gap 7 MEQ/L Estimat Glomerular Filtration Rate 69 ML/MIN Hemoglobin A1c 6.2 % Iron Level 37 MCG/DL Total Iron Binding Capacity 372 MCG/DL Percent Iron Saturation 9.9 % Ferritin 60 NG/ML Triglycerides Level 79 MG/DL Cholesterol Level 240 MG/DL LDL Cholesterol 138 MG/DL HDL Cholesterol 86.0 MG/DL Cholesterol/HDL Ratio 2.79 RATIO Labs reviewed. Awaiting follow-up CBC, but iron studies are suggestive of some degree of iron deficiency and patient was anemic at outside hospital. Vitals/IOs Vital Signs Date Time Temp Pulse Resp B/P (MAP) Pulse Ox O2 Delivery O2 Flow Rate FiO2 04/04/17 16:50 97.6 69 18 121/65 (83) 98 Assessment & Plan Problem List: (1) Undifferentiated schizophrenia ICD Codes: F20.3 - Undifferentiated schizophrenia Assessment & Plan Titrate Abilify to 15mg daily to target psychotic symptoms. Initiate iron supplement and follow-up CBC. Continue to monitor on the high acuity unit. Continue other meds and care as ordered. Justification for Cont. Inpt. Make changes. Impairment in reality construction. Risk for decompensation in less restrictive environment. Discharge Planning Pending psychiatric stabilization. Request HC Surrog/Guard Advoc?: No Shankar Graham MD Apr 05, 2017 08:05
[2017-04-05] MEDS: ARIPiprazole 15 MG TAB PO SCH (08:51)
[2017-04-05] MEDS: NICOTINE 21 MG/24 HR PATCH T-DERMAL SCH (09:00)
[2017-04-05] MEDS: REMOVE OLD PATCH T-DERMAL SCH (09:00)
--- NOTE | 2017-04-05 16:21 | EKG ---
Date Performed: 04/04/2017 Time Performed: 13:57:42 PTAGE: 57 years EKG: Sinus rhythm NORMAL ECG PREVIOUS TRACING : 02/10/2017 08.52 Compared to prior tracing no significant change DOCTOR: Lydia Mensah Interpretating Date/Time 04/05/2017 16:20:10
[2017-04-05] MEDS: FERROUS SULFATE 325 MG (65 MG ELEMENTAL IRON) TAB PO SCH (16:22)
[2017-04-06] MEDS: ARIPiprazole 15 MG TAB PO SCH (09:00)
[2017-04-06] MEDS: REMOVE OLD PATCH T-DERMAL SCH (09:00)
[2017-04-06] MEDS: NICOTINE 21 MG/24 HR PATCH T-DERMAL SCH (09:00)
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
--- NOTE | 2017-04-06 10:56 | PD.TTN ---
Patient Problems 1. Discharge planning 2. Medication compliance 3. Knowledge deficit 4. Lack of coping skills Progress Toward Goals Provider Present: Dr. Jared Graham Provider Input: Pt medication regiment will continue to be evaluated with likely changes including adjustment to Abilify. Nurse(s) Present: Anne-Marie Eden RN Nurse(s) Input: Pt continues to appear paranoid, particular with medications, anxious and easily agitated on unit. Psychiatric Counselors Present: MICKEY Burgos Psych Therapist Input: Pt appears easily agitated, to be responding to internal stimuli, guarded, paranoid, discharge focused and demanding. Pt presents with limited insight into condition and need for care. She struggles with coping and emotional regulation skills though she has been able to avoid any acts of aggression. Pt appears to minimize symptom presentation as a means of achieving discharge. She appears poorly engaged in therapeutic interactions. Pt states that she prefers to remain homeless and asks simply to be transported to [place] so that she may be homeless there. Discharge planning will continue to be discussed. Group Spec/RT/OT/SPARKS Present: ANDREA Logan Group Spec/RT/OT/SPARKS Input: Pt is unable to tolerate the group activities at this time. Pt is rude to staff and peers. Discharge Plan SMA, Other Pt reports that she plans to remain homeless at this time. She will be linked with outpatient psychiatric and medical follow up appointments. She will be provided with assistance with medication being filled as well. She will be [facility] to [facility] as well. Documentation Scribe: MICKEY Burgos Jonathan LMHC Apr 06, 2017 10:56
[2017-04-06] MEDS: FERROUS SULFATE 325 MG (65 MG ELEMENTAL IRON) TAB PO SCH ×2 (12:08→16:51)
[2017-04-06] MEDS: QUEtiapine FUMARATE 200 MG TAB PO SCH (21:15)
[2017-04-07] MEDS: NICOTINE 21 MG/24 HR PATCH T-DERMAL SCH (09:00)
[2017-04-07] MEDS: REMOVE OLD PATCH T-DERMAL SCH (09:00)
[2017-04-07] MEDS: FERROUS SULFATE 325 MG (65 MG ELEMENTAL IRON) TAB PO SCH ×2 (12:23→17:57)
--- NOTE | 2017-04-07 13:10 | HHI.PYPN ---
Subjective Chief Complaint: "I need to be stabilized on meds." Remarks Pt seen and discussed with staff. She has been seclusive and paranoid. She spent 40 minutes in shower and staff had to coax her to end shower and come out. She has been suspicious about medications and has been wiping them off on her shirt. She is hostile and easily agitated. She screams racial slurs and tried to spit on peer. She was given ativan 1mg IM X1 . Mental Status Examination Appearance: Disheveled Consciousness: Alert Orientation: x4 Motor Activity: Normal gait, Other (no motoric abnormalities noted) Speech: Unremarkable, Other (rambling) Language: Adequate Fund of Knowledge: Adequate Attention and Concentration: Easily Distracted Memory: Impaired Mood: Angry, Irritable Affect: Irritable, Other (restricted and consistent with stated mood) Thought Process & Associations: Circumstantial Thought Content: Bizarre thinking, Delusional Hallucination Type: Other (remains internally stimulated) Delusion Type: Paranoid Suicidal Ideation: No (unreliable to contract for safety) Suicidal Plan: No Suicidal Intention: No Homicidal Ideation: No Homicidal Plan: No Homicidal Intention: No Insight: Poor Judgment: Poor Results Vitals/IOs Vital Signs Date Time Temp Pulse Resp B/P (MAP) Pulse Ox O2 Delivery O2 Flow Rate FiO2 04/04/17 16:50 97.6 69 18 121/65 (83) 98 Assessment & Plan Problem List: (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 Estimated LOS: days Justification for Cont. Inpt. agitation Request HC Surrog/Guard Advoc?: Laura Mckenzie MD Apr 07, 2017 13:10
[2017-04-07] MEDS: LORazepam 2 MG/ML VIAL IM PRN (13:47)
[2017-04-07] MEDS: QUEtiapine FUMARATE 200 MG TAB PO SCH (21:00)
[2017-04-08] MEDS: LORazepam 2 MG/ML VIAL IM PRN (05:04)
[2017-04-08] MEDS: REMOVE OLD PATCH T-DERMAL SCH (09:00)
[2017-04-08] MEDS: NICOTINE 21 MG/24 HR PATCH T-DERMAL SCH (09:00)
--- NOTE | 2017-04-08 10:50 | HHI.PYPN ---
Subjective Chief Complaint: "I need to be stabilized on meds." Remarks Pt seen and discussed with staff. She was aggressive yesterday and received ativan IM X1 which calmed pt. She was up most of the night pacing and making delusional statements. She was given ativan 1mg Po X1 early this morning for agitation. She is compliant with medications and denies side effects. She remains disorganized and delusional. No SI/HI Mental Status Examination Appearance: Disheveled Consciousness: Alert Orientation: x4 Motor Activity: Normal gait, Other (no motoric abnormalities noted) Speech: Unremarkable, Other (rambling) Language: Adequate Fund of Knowledge: Adequate Attention and Concentration: Easily Distracted Memory: Impaired Mood: Other (calm) Affect: Flat Thought Process & Associations: Disorganized Thought Content: Bizarre thinking, Delusional Hallucination Type: Other (remains internally stimulated) Delusion Type: Paranoid Suicidal Ideation: No Suicidal Plan: No Suicidal Intention: No Homicidal Ideation: No Homicidal Plan: No Homicidal Intention: No Insight: Poor Judgment: Poor Results Vitals/IOs Vital Signs Date Time Temp Pulse Resp B/P (MAP) Pulse Ox O2 Delivery O2 Flow Rate FiO2 04/04/17 16:50 97.6 69 18 121/65 (83) 98 Assessment & Plan Problem List: (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 Estimated LOS: days Justification for Cont. Inpt. impairments in reality testing Request HC Surrog/Guard Advoc?: Laura Mckenzie MD Apr 08, 2017 10:50
[2017-04-08] MEDS: FERROUS SULFATE 325 MG (65 MG ELEMENTAL IRON) TAB PO SCH ×2 (12:18→17:56)
[2017-04-08 15:50] VITALS: BP 125/70; PULSE 84; RESP 18; TEMP 97.3; O2SAT 98
[2017-04-08] MEDS: QUEtiapine FUMARATE 200 MG TAB PO SCH (20:39)
[2017-04-09 06:05] VITALS: BP 107/61; PULSE 73; RESP 18; TEMP 97.3; O2SAT 97
[2017-04-09] MEDS: REMOVE OLD PATCH T-DERMAL SCH (09:00)
--- NOTE | 2017-04-09 09:04 | HHI.PYPN ---
Subjective Chief Complaint: "I need to be stabilized on meds." Remarks Patient seen and examined with nurse. Chart reviewed. Case discussed with nursing staff who reports patient remains paranoid and somewhat behaviorally disorganized. As an example of the latter, nurse notes that the patient smeared a white substance, believed to be toothpaste, over her face and had to be coached by nurse on how to remove it. On my exam patient is ingratiating and superficial, I suspect in service of obtaining discharge. She becomes considerably more irritable when it becomes apparent that she will not be leaving the hospital today. She remains paranoid but is calmer overall on Seroquel than she was on Abilify, and patient herself agrees that she is improved. Denies AVH but remains a little internally stimulated. Denies SI or HI. Denies side effects from medications. No physical complaints. Review of Systems ROS Limitations: Psychotic Except as stated in HPI: all other systems reviewed are Neg Mental Status Examination Appearance: Disheveled Consciousness: Alert Orientation: x4 Motor Activity: Other (no abnormal motor movements noted) Speech: Unremarkable, Other (rambling) Language: Adequate Fund of Knowledge: Adequate Attention and Concentration: Easily Distracted Memory: Impaired Mood: Irritable Affect: Irritable Thought Process & Associations: Other (perseverative on discharge) Thought Content: Bizarre thinking, Delusional Hallucination Type: Other (continues to appear internally preoccupied) Delusion Type: Paranoid Suicidal Ideation: No Suicidal Plan: No Suicidal Intention: No Homicidal Ideation: No Homicidal Plan: No Homicidal Intention: No Insight: Poor Judgment: Poor Results Labs Labs reviewed. No new labs. 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 Continue to monitor on the high acuity unit. Continue other medications and care as ordered. Justification for Cont. Inpt. Med changes. Discharge Planning Anticipate another 1-3 days for stabilization. Case discussed with counselor. Request HC Surrog/Guard Advoc?: No Shankar Graham MD Apr 09, 2017 09:04
[2017-04-09] MEDS: QUEtiapine FUMARATE 100 MG TAB PO SCH (09:26)
[2017-04-09] MEDS: NICOTINE 21 MG/24 HR PATCH T-DERMAL SCH (09:27)
[2017-04-09] MEDS: FERROUS SULFATE 325 MG (65 MG ELEMENTAL IRON) TAB PO SCH ×2 (12:00→17:34)
[2017-04-09 18:00] VITALS: BP 118/57; PULSE 95; RESP 16; TEMP 97.9; O2SAT 95
[2017-04-09] MEDS: QUEtiapine FUMARATE 200 MG TAB PO SCH (20:49)
[2017-04-10] MEDS: LORazepam 1 MG TAB PO PRN (08:36)
[2017-04-10] MEDS: QUEtiapine FUMARATE 100 MG TAB PO SCH (08:36)
[2017-04-10] MEDS: REMOVE OLD PATCH T-DERMAL SCH (08:38)
[2017-04-10] MEDS: NICOTINE 21 MG/24 HR PATCH T-DERMAL SCH (08:38)
--- NOTE | 2017-04-10 11:02 | HHI.PYPN ---
Subjective Chief Complaint: "I need to be stabilized on meds." Remarks Patient seen and examined with nurse. Chart reviewed. Case discussed with nurse and in treatment team. Per nursing staff, patient remains quite psychotic and internally stimulated. On my examination today, the patient is hyperverbal and argumentative. Paranoia is present. She insists that peers are "nonsense makers" and are engaged in a "rigamarole" into which they are trying to draw her. She is discharge focused. She insists that she is "high functioning" and so should be discharged. No side effects from medications, although she does seem a little bit suspicious of them. Patient seems to say that she had an episode of incontinence of urine overnight, but it is difficult to get a clear history because of her ongoing psychotic symptoms. She seems to say that she has a history of chronic urinary urgency. No other physical complaints. Review of Systems ROS Limitations: Psychotic, Poor Historian Except as stated in HPI: all other systems reviewed are Neg Mental Status Examination Appearance: Disheveled Consciousness: Alert, Vigilant Orientation: x4 Motor Activity: Other (no motoric abnormalities noted) Speech: Rapid, Other (rambling) Language: Adequate Fund of Knowledge: Adequate Attention and Concentration: Easily Distracted Memory: Impaired Mood: Irritable, Other (dysphoric) Affect: Irritable, Other (consistent with mood) Thought Process & Associations: Other (perseverative on discharge) Thought Content: Bizarre thinking, Delusional Hallucination Type: Other (remains internally stimulated) Delusion Type: Paranoid Suicidal Ideation: No Suicidal Plan: No Suicidal Intention: No Homicidal Ideation: No Homicidal Plan: No Homicidal Intention: No Insight: Poor Judgment: Poor Results Labs Labs reviewed Vitals/IOs Vital Signs Date Time Temp Pulse Resp B/P (MAP) Pulse Ox O2 Delivery O2 Flow Rate FiO2 04/09/17 18:00 97.9 95 16 118/57 (39) 67 Assessment & Plan Problem List: (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 I will offer her an increased dose of Seroquel, 150 mg in the morning and 300 mg at bedtime to target ongoing psychotic symptoms. Check a urinalysis and culture given reported incontinence. Continue to monitor on the inpatient unit. Continue other medications and care as ordered. Justification for Cont. Inpt. Medication changes. Impairment in reality construction. High risk for decompensation in less restrictive environment. Discharge Planning Pending psychiatric stabilization. [facility] tomorrow. Request HC Surrog/Guard Advoc?: No Shankar Graham MD Apr 10, 2017 11:02
[2017-04-10] MEDS: FERROUS SULFATE 325 MG (65 MG ELEMENTAL IRON) TAB PO SCH ×2 (12:19→17:44)
--- NOTE | 2017-04-10 14:32 | PD.TTN ---
Patient Problems 1. Discharge planning 2. Medication compliance 3. Knowledge deficit 4. Lack of coping skills Progress Toward Goals Provider Present: Dr. Jared Graham Provider Input: Pt medication regiment will continue to be evaluated with likely changes including adjustment to Abilify. 04/10- Pt Seroquel will be titrated and pt remains psychotic. Nurse(s) Present: Anne-Marie Eden RN Nurse(s) Input: Pt continues to appear paranoid, particular with medications, anxious and easily agitated on unit. 04/10- Frederic Kirk RN Pt appears psychotic, disruptive, medication compliant, with flights of ideas and with worsening symptoms today. Psychiatric Counselors Present: MICKEY Burgos Psych Therapist Input: Pt appears easily agitated, to be responding to internal stimuli, guarded, paranoid, discharge focused and demanding. Pt presents with limited insight into condition and need for care. She struggles with coping and emotional regulation skills though she has been able to avoid any acts of aggression. Pt appears to minimize symptom presentation as a means of achieving discharge. She appears poorly engaged in therapeutic interactions. Pt states that she prefers to remain homeless and asks simply to be transported to [place] so that she may be homeless there. Discharge planning will continue to be discussed. 04/10- Pt continues to appear delusional, psychotic, disorganized, agitated and uncooperative. Pt presents with limited insight into condition and need for care. She appears discharge focused and with attempt to minimize symptoms to obtain discharge. She appears to be lacking coping skills and remains easily agitated. She has been medication compliant but does not feel she needs medication suggesting possible decompensation after discharge as she has been noncompliant with regiment. Group Spec/RT/OT/SPARKS Present: ANDREA Logan, BRIDGER Flower Group Spec/RT/OT/SPARKS Input: Pt is unable to tolerate the group activities at this time. Pt is rude to staff and peers. 04/10- Pt is unable to tolerate most groups and remains psychotic. Discharge Plan SMA, Other Pt reports that she plans to remain homeless at this time. She will be linked with outpatient psychiatric and medical follow up appointments. She will be provided with assistance with medication being filled as well. She will be linked to [facility] as well. Documentation Scribe: MICKEY Burgos Jonathan LMHC Apr 10, 2017 14:32
[2017-04-10 17:59] VITALS: BP 139/75; PULSE 88; RESP 18; TEMP 97.4; O2SAT 100
[2017-04-10] MEDS: QUEtiapine FUMARATE 300 MG TAB PO SCH (21:36)
[2017-04-11] MEDS ORDERED: QUEtiapine FUMARATE 100 MG TAB PO SCH (09:00)
[2017-04-11] MEDS: NICOTINE 21 MG/24 HR PATCH T-DERMAL SCH (09:00)
[2017-04-11] MEDS: REMOVE OLD PATCH T-DERMAL SCH (09:00)
--- NOTE | 2017-04-11 10:41 | HHI.PYPN ---
Subjective Chief Complaint: "I need to be stabilized on meds." Remarks Patient seen and examined with nurse. Chart reviewed. Case discussed with RN who reports that patient has been extremely paranoid, particularly around medication administration. She also reportedly was hostile toward cardiovascular lab director per nursing staff. I evaluated patient following [place] [facility] in which she was retained. Patient is intensely dysphoric and sarcastic. She remains paranoid and irritable. She castigates this scenario writer saying "you need to be mindful!" I try to work with patient to develop a treatment plan going forward, but patient instead says in a scornful tone "since you are a know-it-all, you can follow your plan. I'm going to follow God's plan." She then stalks off, concluding the interview. No evident side effects from medications. No physical complaints. Review of Systems ROS Limitations: Psychotic, Poor Historian Except as stated in HPI: all other systems reviewed are Neg Mental Status Examination Appearance: Disheveled Consciousness: Alert, Vigilant Orientation: Person, Place (at least) Motor Activity: Other (no abnormal motor movements noted) Speech: Unremarkable Language: Adequate Fund of Knowledge: Adequate Attention and Concentration: Easily Distracted Memory: Impaired Mood: Irritable, Other (dysphoric) Affect: Irritable, Other (once again consistent with mood) Thought Process & Associations: Circumstantial Thought Content: Bizarre thinking, Delusional Hallucination Type: Other (continues to appear internally preoccupied) Delusion Type: Paranoid Suicidal Ideation: No (no SI voiced but unreliable to contract for safety) Homicidal Ideation: No Insight: Poor Judgment: Poor Results Labs Labs reviewed. No new labs. Patient apparently refused to provide urine sample for urinalysis. 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 Titrate Seroquel to 200/400 mg to target ongoing psychotic symptoms. Plan for additional titration to target psychotic symptoms as needed. Although covert medication nonadherence on the unit is not suspected by nursing staff, I have ordered mouth checks to ensure that nonadherence is not contributing to her ongoing psychosis. Continue to monitor on the high acuity unit. Continue other medications and care as ordered. Patient's case was presented to the [place], and the patient was retained on the unit by the director product safety. The patient was not appointed a guardian advocate and remains capacitated to consent for medications. Justification for Cont. Inpt. Med changes. Impairment in reality construction. High risk for decompensation in less restrictive environment. Discharge Planning Pending stabilization. Request HC Surrog/Guard Advoc?: No Shankar Graham MD Apr 11, 2017 10:41
[2017-04-11] MEDS: FERROUS SULFATE 325 MG (65 MG ELEMENTAL IRON) TAB PO SCH ×2 (11:52→16:44)
[2017-04-11] MEDS: QUEtiapine FUMARATE 300 MG TAB PO SCH (20:50)
[2017-04-12] MEDS: NICOTINE 21 MG/24 HR PATCH T-DERMAL SCH (09:00)
[2017-04-12] MEDS: REMOVE OLD PATCH T-DERMAL SCH (09:00)
[2017-04-12] MEDS: QUEtiapine FUMARATE 100 MG TAB PO SCH (09:00)
[2017-04-12] MEDS: LORazepam 2 MG/ML VIAL IM PRN (09:24)
--- NOTE | 2017-04-12 10:59 | HHI.PYPN ---
Subjective Chief Complaint: "I need to be stabilized on meds." Remarks I have seen and examined this patient for psychiatric reevaluation today. Reviewed charge, medication regimen, previous documentation from Dr. Graham, vital signs and labs. Discussed the case with nursing charge. Today the patient is found eating her breakfast in the recreational area of the unit. When I asked to the patient how are you today, she stared at me asking me "why are you, who sent you here"visibly paranoid and very irritable. She continues eating her breakfast and is states that she doesn't want to talk to me and she doesn't want talked with anybody here. As per nurses report, the patient has remained kind of oppositional in the unit, at times talking to herself, suspicious, but taking her medications and no significant side effects reported or noted. Review of Systems Except as stated in HPI: all other systems reviewed are Neg Mental Status Examination Appearance: Disheveled Consciousness: Alert, Vigilant Orientation: Person, Place (at least) Motor Activity: Other (no abnormal motor movements noted) Speech: Unremarkable Language: Adequate Fund of Knowledge: Adequate Attention and Concentration: Easily Distracted Memory: Impaired Mood: Irritable, Other (dysphoric) Affect: Irritable, Other (once again consistent with mood) Thought Process & Associations: Circumstantial Thought Content: Bizarre thinking, Delusional Hallucination Type: Other (continues to appear internally preoccupied) Delusion Type: Paranoid Suicidal Ideation: No (no SI voiced but unreliable to contract for safety) Homicidal Ideation: No Insight: Poor Judgment: Poor Results Vitals/IOs Vital Signs Date Time Temp Pulse Resp B/P (MAP) Pulse Ox O2 Delivery O2 Flow Rate FiO2 04/10/17 17:59 97.4 88 18 139/75 (96) 100 Assessment & Plan Problem List: (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 Since medication was increased yesterday, today just will observe. Assessment & Plan Estimated LOS: days Justification for Cont. Inpt. Patient is acutely psychotic, she represents a danger to herself and others, she needs to continue hospitalized. Request HC Surrog/Guard Advoc?: No Quirino Hong MD Apr 12, 2017 10:59
[2017-04-12] MEDS: FERROUS SULFATE 325 MG (65 MG ELEMENTAL IRON) TAB PO SCH ×2 (12:00→17:00)
[2017-04-12 17:15] VITALS: BP 113/56; PULSE 88; RESP 18; TEMP 98.2; O2SAT 99
[2017-04-12] MEDS: QUEtiapine FUMARATE 300 MG TAB PO SCH (20:35)
[2017-04-12] MEDS: LORazepam 1 MG TAB PO PRN (20:35)
[2017-04-13] MEDS: QUEtiapine FUMARATE 100 MG TAB PO SCH (08:11)
[2017-04-13] MEDS: NICOTINE 21 MG/24 HR PATCH T-DERMAL SCH ×2 (08:12→12:32)
[2017-04-13] MEDS: REMOVE OLD PATCH T-DERMAL SCH (08:12)
--- NOTE | 2017-04-13 10:36 | PD.TTN ---
Patient Problems 1. Discharge planning 2. Medication compliance 3. Knowledge deficit 4. Lack of coping skills Progress Toward Goals Provider Present: Dr. Jared Graham Provider Input: Pt medication regiment will continue to be evaluated with likely changes including adjustment to Abilify. 04/10- Pt Seroquel will be titrated and pt remains psychotic. 04/13 patient is slowly improving Nurse(s) Present: Anne-Marie Eden RN Nurse(s) Input: Pt continues to appear paranoid, particular with medications, anxious and easily agitated on unit. 04/10- Frederic Kirk RN Pt appears psychotic, disruptive, medication compliant, with flights of ideas and with worsening symptoms today. 04/13 Sandy states that patient has slept well and is med compliant and overall no behavioral issues Psychiatric Counselors Present: Castillo Acuña [facility] Psych Therapist Input: Pt appears easily agitated, to be responding to internal stimuli, guarded, paranoid, discharge focused and demanding. Pt presents with limited insight into condition and need for care. She struggles with coping and emotional regulation skills though she has been able to avoid any acts of aggression. Pt appears to minimize symptom presentation as a means of achieving discharge. She appears poorly engaged in therapeutic interactions. Pt states that she prefers to remain homeless and asks simply to be transported to [place] so that she may be homeless there. Discharge planning will continue to be discussed. 04/10- Pt continues to appear delusional, psychotic, disorganized, agitated and uncooperative. Pt presents with limited insight into condition and need for care. She appears discharge focused and with attempt to minimize symptoms to obtain discharge. She appears to be lacking coping skills and remains easily agitated. She has been medication compliant but does not feel she needs medication suggesting possible decompensation after discharge as she has been noncompliant with regiment. 04/13 patient remains discharged focused , awaiting further stabilization. Group Spec/RT/OT/SPARKS Present: Suzi Ye, ANDREA, BRIDGER Flower Group Spec/RT/OT/SPARKS Input: Pt is unable to tolerate the group activities at this time. Pt is rude to staff and peers. 04/10- Pt is unable to tolerate most groups and remains psychotic. 04/13 patient is psychotic and often unable to tolerate groups. Discharge Plan SMA, Other Pt reports that she plans to remain homeless at this time. She will be linked with outpatient psychiatric and medical follow up appointments. She will be provided with assistance with medication being filled as well. She will be linked to [facility] as well. Documentation Scribe: MICKEY Burgos Verena LCSW Apr 13, 2017 10:36
[2017-04-13] MEDS: FERROUS SULFATE 325 MG (65 MG ELEMENTAL IRON) TAB PO SCH ×2 (12:31→15:43)
--- NOTE | 2017-04-13 13:05 | HHI.PYPN ---
Subjective Chief Complaint: "I need to be stabilized on meds." Remarks Patient seen and examined with nurse. Chart reviewed. Case discussed in treatment team and with nursing staff. On my examination today, the patient is calmer and less frankly paranoid. She does still exhibit some paranoid behaviors, such as covering her mouth when she is walking down the hallway. She seems a little sleepy today and does complain of feeling somewhat overmedicated. We discuss adjusting Seroquel dosing to lessen this side effect , and she is agreeable to this. She denies any SI or HI. Denies any AVH. No other side effects from medications. No physical complaints. Requests that we reach out to oil field caser through [facility] Rm, and I have asked the counselor to do so. Review of Systems ROS Limitations: Poor Historian Except as stated in HPI: all other systems reviewed are Neg Mental Status Examination Appearance: Disheveled Consciousness: Alert (a little bit sleepy) Orientation: Person, Place Motor Activity: Other (no abnormal motor movements noted) Speech: Unremarkable Language: Adequate Fund of Knowledge: Adequate Attention and Concentration: Adequate Memory: Impaired Mood: Other (calm) Affect: Blunt Thought Process & Associations: Logical, Linear, Other (somewhat slowed) Thought Content: Appropriate, Delusional Hallucination Type: None Delusion Type: Paranoid (lessening) Suicidal Ideation: No Homicidal Ideation: No Insight: Poor Judgment: Poor Results Labs Labs reviewed. No new labs. 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 I will adjust Seroquel dosing to 100mg/400mg to lessen daytime sedation. Since she already got 200mg dose this morning, we will go ahead and give 300mg dose tonight and move to new regimen tomorrow. Continue to monitor on the inpatient unit. Continue other medications and care as ordered. Justification for Cont. Inpt. Med changes. Resolving impairments in reality construction. Risk for decompensation and less restrictive environment. Discharge Planning Possible discharge after the weekend. Case discussed with counselor. Request HC Surrog/Guard Advoc?: No Shankar Graham MD Apr 13, 2017 13:05
[2017-04-13 16:42] VITALS: BP 117/60; PULSE 81; RESP 18; TEMP 98; O2SAT 98
[2017-04-13] MEDS: LORazepam 1 MG TAB PO PRN (20:14)
[2017-04-13] MEDS: QUEtiapine FUMARATE 300 MG TAB PO SCH (20:15)
[2017-04-14] MEDS: QUEtiapine FUMARATE 100 MG TAB PO SCH (10:11)
[2017-04-14] MEDS: REMOVE OLD PATCH T-DERMAL SCH (10:11)
[2017-04-14] MEDS: NICOTINE 21 MG/24 HR PATCH T-DERMAL SCH (10:12)
[2017-04-14] MEDS: FERROUS SULFATE 325 MG (65 MG ELEMENTAL IRON) TAB PO SCH ×2 (10:33→15:25)
--- NOTE | 2017-04-14 13:58 | HHI.PYPN ---
Subjective Chief Complaint: "I need to be stabilized on meds." Remarks Patient was seen and case discussed with nursing. Patient continues to improve. She appears less internally preoccupied. She is tolerating her medications well. Behaving well on the unit. Was perseverative on a scooter Mental Status Examination Appearance: Disheveled Consciousness: Alert (a little bit sleepy) Orientation: Person, Place Motor Activity: Other (no abnormal motor movements noted) Speech: Unremarkable Language: Adequate Fund of Knowledge: Adequate Attention and Concentration: Adequate Memory: Impaired Mood: Other (calm) Affect: Blunt Thought Process & Associations: Logical, Linear, Other (somewhat slowed) Thought Content: Appropriate, Delusional Hallucination Type: None Delusion Type: Paranoid (lessening) Suicidal Ideation: No Suicidal Plan: No Suicidal Intention: No Homicidal Ideation: No Homicidal Plan: No Homicidal Intention: No Insight: Poor Judgment: Poor Results Vitals/IOs Vital Signs Date Time Temp Pulse Resp B/P (MAP) Pulse Ox O2 Delivery O2 Flow Rate FiO2 04/13/17 16:42 98.0 81 18 117/60 (79) 98 Assessment & Plan Problem List: (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 Inpt. Patient will decompensate in a less restrictive setting Request HC Surrog/Guard Advoc?: No Rock Escalante DO Apr 14, 2017 13:58
[2017-04-14] MEDS: LORazepam 1 MG TAB PO PRN (20:38)
[2017-04-14] MEDS: QUEtiapine FUMARATE 200 MG TAB PO SCH (20:39)
[2017-04-15] MEDS: LORazepam 1 MG TAB PO PRN (08:19)
[2017-04-15] MEDS: QUEtiapine FUMARATE 100 MG TAB PO SCH (08:19)
[2017-04-15] MEDS: REMOVE OLD PATCH T-DERMAL SCH (08:20)
[2017-04-15] MEDS: NICOTINE 21 MG/24 HR PATCH T-DERMAL SCH (08:20)
[2017-04-15] MEDS: FERROUS SULFATE 325 MG (65 MG ELEMENTAL IRON) TAB PO SCH ×2 (11:58→17:07)
--- NOTE | 2017-04-15 13:07 | HHI.PYPN ---
Subjective Chief Complaint: "I need to be stabilized on meds." Remarks Patient was seen and case discussed with nursing. Patient is perseverative on discharge. Per nursing, still somewhat internally preoccupied and was seen standing in front of a mirror for a prolonged period. Eating sleeping well. Compliant with medications. Denies any auditory visual hallucinations Mental Status Examination Appearance: Disheveled Consciousness: Alert (a little bit sleepy) Orientation: Person, Place Motor Activity: Other (no abnormal motor movements noted) Speech: Unremarkable Language: Adequate Fund of Knowledge: Adequate Attention and Concentration: Adequate Memory: Impaired Mood: Other (calm) Affect: Blunt Thought Process & Associations: Logical, Linear, Other (somewhat slowed) Thought Content: Appropriate, Delusional Hallucination Type: None Delusion Type: Paranoid (lessening), Somatic Suicidal Ideation: No Suicidal Plan: No Suicidal Intention: No Homicidal Ideation: No Homicidal Plan: No Homicidal Intention: No Insight: Poor Judgment: Poor Results Vitals/IOs Vital Signs Date Time Temp Pulse Resp B/P (MAP) Pulse Ox O2 Delivery O2 Flow Rate FiO2 04/13/17 16:42 98.0 81 18 117/60 (79) 98 Assessment & Plan Problem List: (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 Inpt. Patient will decompensate in a less restrictive setting Request HC Surrog/Guard Advoc?: Rock Gonzalez DO Apr 15, 2017 13:07
[2017-04-15 18:27] VITALS: BP 110/55; PULSE 76; RESP 18; TEMP 97.6; O2SAT 100
[2017-04-15] MEDS: QUEtiapine FUMARATE 200 MG TAB PO SCH (20:31)
[2017-04-16 05:33] VITALS: BP 109/59; PULSE 78; RESP 16; TEMP 97.5; O2SAT 97
[2017-04-16] MEDS: REMOVE OLD PATCH T-DERMAL SCH (09:00)
[2017-04-16] MEDS: QUEtiapine FUMARATE 100 MG TAB PO SCH (09:34)
[2017-04-16] MEDS: NICOTINE 21 MG/24 HR PATCH T-DERMAL SCH (09:36)
[2017-04-16] MEDS ORDERED: FERR325T20 PO (09:38)
[2017-04-16] MEDS ORDERED: QUET1TAB8 PO (09:38)
[2017-04-16] MEDS ORDERED: QUET1TAB9 PO (09:38)
--- NOTE | 2017-04-16 09:38 | HHI.DS ---
Psychiatry Discharge Summary Inpatient Psychiatric care?: Yes Advance Directive: No Reason Not Provided: Due to Patient Condition Mental Health AdvanceDirective: No Health Care Proxy: No Admission Admission Date Apr 03, 2017 at 17:13 Admission Diagnosis: (1) Undifferentiated schizophrenia ICD Code: F20.3 - Undifferentiated schizophrenia Brief History Ms. Drake is a 57-year-old female with a history of schizophrenia who presents in transfer from [facility] under a Black act. Reviewing the documentation from [facility], it appears that the patient presented initially there with complaints of facial dryness and to establish with a new primary care physician. The ED provider felt that she was psychiatrically decompensated, and she apparently admitted to [facility], and so she was placed under the Black act at [facility] and transferred here to [place] for further management. Reviewing the electronic medical record, I note the patient was admitted in January of this year under my care. Patient seen and examined with nurse. Chart reviewed. Case discussed with nursing staff. Patient presents as somewhat disheveled. She is sitting in the day area and is fairly watchful and guarded. She is casting her eyes around the room, and she does appear internally preoccupied. Speech is somewhat hyperverbal and rambling. She is a fairly vague historian, but from what I can gather she has been non-adherent with her psychotropic medications (she was stabilized on Seroquel last time). She denies any SI presently but seems unreliable to contract for safety. When asked about HI, she replies "most ladies, they're little roses." It seems she means that most women are timid, but it is not clear if she counts herself in this group. She denies AVH. I can elicit no ty paranoia, ideas of reference, thought insertion/withdrawal. No issues with mood instability. The remainder of the psychiatric ROS is negative. She complains of some chest congestion but otherwise verbalizes no physical complaints. Past psychiatric history: Patient has a chart history of schizophrenia. She is unsure of her psychiatric diagnosis. She cannot recall when last she saw an outpatient psychiatrist. She does remember having done well on Abilify in the past. She cannot recall when last she was psychiatrically admitted, although she was admitted here in January as I said. She denies a history of suicide attempts. Tobacco Use In Past 30 Days: Cognitive Impairment Alcohol Use: Never Hospital Course Patient was admitted to a locked, inpatient psychiatric unit. Appropriate precautions were in place throughout patient's hospital stay. Patient was seen and examined on the unit by psychiatry and also visited by counselor. Psychotropic medications were adjusted. Patient did not respond well to Abilify but did much better with Seroquel. Seroquel was titrated to effect. Patient's behavior improved with the benefit of psychopharmacologic treatment. There was no evidence of any suicidality or homicidality on the inpatient unit. The patient was transitioned from the high acuity unit to the lower acuity unit without incident. On the day of discharge: Patient seen and examined with nurse. Chart reviewed. Case discussed with nursing staff. No behavioral disturbance overnight. The patient is noted to be somewhat somatic and continues to respond to internal stimuli at times. She is medication compliant. On my examination today, patient is awake and alert. Sedation noted before the weekend has resolved with adjustment of Seroquel dosing. She is requesting discharge from the inpatient psychiatric unit today. She feels that she is stabilized on her medications and can function on an outpatient basis. She denies any suicidal or homicidal ideation, intent or plan on direct questioning and contracts for safety. Mood is stable and I can elicit no depressive or hypomanic/manic symptoms. She denies any audiovisual hallucinations although she does appear a little internally preoccupied still. In particular she does not report any command auditory hallucinations. No ty delusional material elicited, although the patient does remain a little guarded. For example, she insists on conducting interview in day area as opposed to in her room. She also bypasses a nearer chair to select a different seat at some distance from the treatment team. She denies any side effects from medications. She has no physical complaints. Weighing the acute, chronic , and protective factors and based on the available evidence, I federal judge that the patient no longer meets criteria for involuntary psychiatric hospitalization. Suicide and violence risk assessment both suggest lower imminent risk on discharge, and the patient appears to be attending to her basic needs. I do believe that the patient remains somewhat symptomatic with respect to her psychosis though, and I have recommended that she remain on the unit voluntarily for further stabilization. She has declined and continues to wish to be discharged today. Since I have no basis to retain the patient involuntarily at this time, I must order her discharge from the inpatient psychiatric unit today. Patient is to follow-up psychiatrically as arranged by counselor. Patient is also to follow-up with primary care. I have counseled the patient regarding warning signs for need to return to the psychiatric emergency room as part of a general safety plan. Results Blood Pressure 109 / 59 Vital Signs Date Time Temp Pulse Resp B/P (MAP) Pulse Ox O2 Delivery O2 Flow Rate FiO2 04/16/17 05:33 97.5 78 16 109/59 (76) 97 Laboratory Results Test 04/04/17 10:10 Cholesterol Level 240 MG/DL (120-200) HDL Cholesterol 86.0 MG/DL (40.0-60.0) Hemoglobin A1c 6.2 % (4.3-6.0) LDL Cholesterol 138 MG/DL (0-99) Triglycerides Level 79 MG/DL (42-150) Summary of Procedures None done Imaging None done Pending results at discharge: No Medications # of Antipsychotic meds at D/C: 1 Approp Antipsych med options 1 - Minimum of three failed multiple trials of monotherapy. 2 - Documented plan to taper to monotherapy due to previous use of multiple meds OR cross-taper in progress at D/C. 3 - Documentation of augmentation of Clozapine. 4 - Justification other than those listed in allowable values 1-3, document here : Discharge Discharge Date: Apr 16, 2017 Discharge Diagnosis: (1) Undifferentiated schizophrenia Diagnosis: Principal (improved versus admission) ICD Code: F20.3 - Undifferentiated schizophrenia Pt Condition on Discharge: Stable Discharge Disposition: Discharge Home Discharge Instructions Diet Instructions: As Tolerated, No Restrictions Activities you can perform: Weight Bearing as Deyanira Scheduled Appointment: as per counselor's notes New Orders: BASIC METABOLIC PROF - 1 Week CBC NO DIFF - 1 Week New Medications: Docusate Sodium (Docusate Sodium) 100 Mg Cap 100 MG PO BID for Prevent Constipation for 15 Days, #30 CAP 1 Refill Ferrous Sulfate (Ferosul) 325 Mg (65 Mg Iron) Tablet 325 MG PO BID@12,17 for Iron Supplement for 15 Days, TAB 1 Refill Quetiapine (Quetiapine) 100 Mg Tab 100 MG PO DAILY for Mental Health for 15 Days, #15 TAB 1 Refill Quetiapine (Quetiapine) 200 Mg Tab 400 MG PO HS for Mental Health for 15 Days, TAB 1 Refill Discontinued Medications: Olanzapine (Zyprexa) 5 Mg Tab 5 MG PO DAILY, #30 TAB 0 Refills Quetiapine (Quetiapine) 300 Mg Tab 300 MG PO HS for Mental Health for 15 Days, TAB 1 Refill Discharge Time <= 30 minutes Mental Status Examination Appearance: Appropriate Consciousness: Alert Orientation: x4 Motor Activity: Normal gait, Other (no abnormal motor movements noted) Speech: Unremarkable Language: Adequate Fund of Knowledge: Adequate Attention and Concentration: Adequate Memory: Unremarkable Mood: Appropriate Affect: Blunt Thought Process & Associations: Intact, Logical, Goal directed, Linear Thought Content: Appropriate Hallucination Type: None Delusion Type: Other (residual guardedness, no ty delusions) Suicidal Ideation: No Suicidal Plan: No Suicidal Intention: No Homicidal Ideation: No Homicidal Plan: No Homicidal Intention: No Insight: Fair (fair at best) Judgment: Adequate (fair at best) Discharge/Advance Care Plan Health Problems: (1) Undifferentiated schizophrenia Goals to promote your health * To prevent worsening of your condition and complications * To maintain your health at the optimal level Directions to meet your goals Take your medications as prescribed Follow your dietary instruction Follow activity as directed Keep your appointments as scheduled Take your immunizations and boosters as scheduled If your symptoms worsen call your PCP, if no PCP go to Urgent Care Center or Emergency Room For 11/12 questions related to your inpatient stay or results of tests pending at discharge, please contact Dr. Shankar Graham at Smoking is Dangerous to Your Health. Avoid second hand smoking Shankar Graham MD Apr 16, 2017 09:38
[2017-04-16] MEDS: FERROUS SULFATE 325 MG (65 MG ELEMENTAL IRON) TAB PO SCH (11:39)
[2017-04-16] MEDS ORDERED: DOCU100C15 PO (12:47)
== END 2017-04-16 13:25 | disposition home or self-care (01) | DRG 885 ==
LOC: H270 17:13 → H250 04-14 15:21 → H260 04-15 19:18
PROVIDERS: ADMIT Psychiatry & Neurology Psychiatry; ATTEND Psychiatry & Neurology Psychiatry
DX: F20.3 Undifferentiated schizophrenia (principal); Z59.0 Homelessness; D50.9 Iron deficiency anemia, unspecified; R32 Unspecified urinary incontinence; R39.15 Urgency of urination
CPT/HCPCS: 80048; 80061; 82728; 83036; 83540; 83550; 93005; J2060

== ENCOUNTER 2017-04-21 04:45 | Emergency (ER) | payer MEDICARE, OTHER ==
[~2017-04-21] VITALS: Ht 167.6 cm; Wt 65.0 kg
[~2017-04-21 04:45] MED LIST changes: +DOCU100C15 PO; +FERR325T20 PO; -QUET1TAB10 PO; +QUET1TAB8 PO; +QUET1TAB9 PO
[2017-04-21 04:51] VITALS: BP 116/64; PULSE 98; RESP 18; TEMP 97.7; O2SAT 100
[2017-04-21] MEDS ORDERED: ARIP2 PO (05:00)
[2017-04-21] MEDS ORDERED: AMOX500C PO (05:17)
--- NOTE | 2017-04-21 05:20 | PD ---
HPI Chief Complaint: Cold / Flu Symptoms Time Seen by Provider: 05:09 Travel History International Travel<30 days: No Contact w/Intl Traveler<30days: No Traveled to known affect area: No History of Present Illness HPI 57-year-old black female presents to emergency Department with complaints of sore throat over the last 3 days. She states that she has had headache, sore throat, congestion, ring sputum, and general malaise. She states that she's felt warm but has not documented a fever. No shortness of breath or wheezing. No nausea vomiting. No abdominal pain or diarrhea. No dysuria or frequency. Symptoms are [id number]. No alleviating symptoms. PFSH Past Medical History Anemia: Yes Anxiety: Yes Depression: Yes Diminished Hearing: No Schizophrenia: Yes Tetanus Vaccination: < 5 Years Influenza Vaccination: No Past Surgical History Surgical History: No Previous Surgery Social History Alcohol Use: Yes (HOLIDAYS) Tobacco Use: No Substance Use: No Allergies-Medications (Allergen,Severity, Reaction): Coded Allergies: No Known Allergies (Unverified Adverse Reaction, Unknown, 04/21/17) Reported Meds & Prescriptions Reported Meds & Active Scripts Active Docusate Sodium 100 Mg Cap 100 Mg PO BID 15 Days Quetiapine (Quetiapine Fumarate) 200 Mg Tab 400 Mg PO HS 15 Days Quetiapine (Quetiapine Fumarate) 100 Mg Tab 100 Mg PO DAILY 15 Days Ferosul (Ferrous Sulfate) 325 Mg (65 Mg Iron) Tablet 325 Mg PO BID@,17 15 Days Reported Abilify (Aripiprazole) 2 Mg Tab Unknown Dose PO DAILY Review of Systems Except as stated in HPI: all other systems reviewed are Neg Physical Exam Narrative GENERAL: Well-developed, well-nourished in no acute distress. Nontoxic appearing. HEAD: Normocephalic, atraumatic. EYES: Pupils equal round and reactive. Extraocular motions intact. No scleral icterus. No injection or drainage. ENT: TMs clear without erythema. The external auditory canals clear. Nose: clear . Posterior pharynx is pink and moist. No tonsillar edema or exudate. Uvula midline. Airway patent. NECK: Trachea midline.Supple, nontender, moves head freely. No central bony tenderness or spasm. CARDIOVASCULAR: Regular rate and rhythm without murmurs, gallops, or rubs. RESPIRATORY: Clear to auscultation. Breath sounds equal bilaterally. No wheezes , rales, or rhonchi. GASTROINTESTINAL: Abdomen soft, non-tender, nondistended. No hepato-splenomegaly , or palpable masses. No guarding. EXTREMITIES: No clubbing, cyanosis, or edema. No joint tenderness, effusion, or edema noted. BACK: Nontender without deformity or crepitance. No flank tenderness. Data Data Last Documented VS Vital Signs Date Time Temp Pulse Resp B/P (MAP) Pulse Ox O2 Delivery O2 Flow Rate FiO2 04/21/17 04:57 98 18 100 Nasal Cannula 04/21/17 04:51 97.7 116/64 (81) Orders Orders Ed Discharge Order (04/21/17 05:16) Amoxicillin (Trimox) (04/21/17 05:30) MDM Medical Decision Making Medical Screen Exam Complete: Yes Emergency Medical Condition: Yes Medical Record Reviewed: Yes Differential Diagnosis MDM: High Differential diagnoses: Strep throat, viral pharyngitis, mono, peritonsillar abscess, retropharyngeal abscess, Jhonathan's angina Narrative Course Patient is given amoxicillin 500 mg by mouth. This acute pharyngitis, URI Diagnosis Primary Impression: Acute pharyngitis Qualified Codes: J02.9 - Acute pharyngitis, unspecified Additional Impression: URI (upper respiratory infection) Qualified Codes: J06.9 - Acute upper respiratory infection, unspecified; B97.89 - Other viral agents as the cause of diseases classified elsewhere Patient Instructions: General Instructions Additional Instructions: Rest. Increase fluids. Tylenol and Advil. Robitussin-DM. Amoxicillin. Followup with your Dr. in one week. Return to the ER for any problems. Med/Other Pt SpecificInfo: Prescription(s) given Scripts Amoxicillin (Amoxicillin) 500 Mg Cap 500 MG PO TID for Infection, #21 CAP 0 Refills Prov: Halie Mason MD 04/21/17 Disposition: 01 DISCHARGE HOME Condition: Stable Wilberto Torres Apr 21, 2017 05:20
[2017-04-21] MEDS ORDERED: AMOXICILLIN (TRIHYDRATE) 500 MG CAP PO ONE (05:30)
== END 2017-04-21 06:56 | disposition home or self-care (01) ==
LOC: NEPD 04:45
DX: J02.9 Acute pharyngitis, unspecified (principal); J06.9 Acute upper respiratory infection, unspecified; B97.89 Other viral agents as the cause of diseases classified elsewhere; R51 Headache; R53.81 Other malaise; Z86.2 Personal history of diseases of the blood and blood-forming organs and certain disorders involving the immune mechanism; Z86.59 Personal history of other mental and behavioral disorders
CPT/HCPCS: 99283

== ENCOUNTER 2017-04-30 18:59 | Emergency (ER) | payer OTHER ==
[~2017-04-30 18:59] MED LIST changes: +AMOX500C PO; +ARIP2 PO
[2017-04-30 19:00] VITALS: BP 121/85; PULSE 90; RESP 16; TEMP 98.7; O2SAT 95
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
--- NOTE | 2017-04-30 21:31 | RADRPT ---
EXAM DATE/TIME: 04/30/2017 20:54 [facility] COMPARISON: No previous studies available for comparison. INDICATIONS : Left ankle swelling, doesn't remenber injury MEDICAL HISTORY : None. SURGICAL HISTORY : None. ENCOUNTER: Initial ACUITY: 2 days PAIN SCORE: 0/10 LOCATION: Left Ankle FINDINGS: Two view exam was performed of the left ankle. The bony structures are in normal alignment. No evid ence of fracture, dislocation. No radiopaque foreign bodies are seen. Bony mineralization is normal . CONCLUSION: 1. Soft tissue swelling at the left ankle. No acute bony abnormality. Wilberto Araiza MD on April 30, 2017 at 21:29 Board Certified Radiologist. This report was verified electronically.
--- NOTE | 2017-04-30 21:51 | PD ---
Physical Exam Narrative GENERAL: SKIN: Warm and dry. HEAD: Atraumatic. Normocephalic. EYES: Pupils equal and round. No scleral icterus. No injection or drainage. ENT: No nasal bleeding or discharge. Mucous membranes pink and moist. NECK: Trachea midline. No JVD. CARDIOVASCULAR: Regular rate and rhythm. RESPIRATORY: No accessory muscle use. Clear to auscultation. Breath sounds equal bilaterally. GASTROINTESTINAL: Abdomen soft, non-tender, nondistended. MUSCULOSKELETAL: Extremities without clubbing, cyanosis, or edema. No obvious deformities. EXCEPT MILD LATERAL EDEMA TO LEFT ANKLE, NO OPEN LAC, NO CELLULITIC CHANGES, NO STREAKING NEUROLOGICAL: Awake and alert. No obvious cranial nerve deficits. Motor grossly within normal limits. Five out of 5 muscle strength in the arms and legs. Normal speech. PSYCHIATRIC: Appropriate mood and affect; insight and judgment normal. Data Data Last Documented VS Vital Signs Date Time Temp Pulse Resp B/P (MAP) Pulse Ox O2 Delivery O2 Flow Rate FiO2 04/30/17 19:00 98.7 90 16 121/85 (97) 95 Room Air Orders Orders Ankle, Limited (Ap&Lat) (04/30/17 ) [facility] Medical Record Reviewed: Yes Supervised Visit with JIMMY: Yes Narrative Course XRAY DOESN'T SHOW ANY FX OR DISLOCATION. SOME SOFT TISSUE SWELLING NOTED. Diagnosis Primary Impression: Ankle sprain Qualified Codes: S93.412A - Sprain of calcaneofibular ligament of left ankle, initial encounter Referrals: [facility] Additional Instruction: Follow up at [facility] within 2-3 days. Take [id number] Tylenol or Motrin per package instructions. Disposition: 01 DISCHARGE HOME Condition: Stable Sanford Dutta MD Apr 30, 2017 21:51
== END 2017-04-30 22:27 | disposition home or self-care (01) ==
LOC: NEPD 18:59
DX: S93.412A Sprain of calcaneofibular ligament of left ankle, initial encounter (principal); W51.XXXA Accidental striking against or bumped into by another person, initial encounter
CPT/HCPCS: 73600; 99284; L1906

== ENCOUNTER 2017-05-14 21:12 | Emergency (ER) | payer OTHER ==
[~2017-05-14 21:12] MED LIST changes: -AMOX500C PO
[2017-05-14 21:14] VITALS: BP 132/62; PULSE 83; RESP 20; TEMP 97.7; O2SAT 97
--- NOTE | 2017-05-15 00:39 | PD ---
HPI Chief Complaint: Psychiatric Symptoms Time Seen by Provider: 00:34 Travel History International Travel<30 days: No Contact w/Intl Traveler<30days: No Traveled to known affect area: No History of Present Illness HPI The patient is a 57-year-old homeless female that came in just to sit and rest. She states it's [place] she wants a good place to lie down. She does have a history of psychiatric problems and states we are going to burn, Dirk is going to burn a small. She is not suicidal or homicidal. She is in no respiratory distress and has no physical complaints other than slight swelling of her feet. She denies any fever. PFSH Past Medical History Anemia: Yes Anxiety: Yes Depression: Yes Diminished Hearing: No Schizophrenia: Yes Tetanus Vaccination: Unknown Influenza Vaccination: No Past Surgical History Surgical History: No Previous Surgery Social History Alcohol Use: Yes (occ) Tobacco Use: Yes (OCC) Substance Use: No Allergies-Medications (Allergen,Severity, Reaction): Coded Allergies: No Known Allergies (Unverified Adverse Reaction, Unknown, 05/14/17) Reported Meds & Prescriptions Reported Meds & Active Scripts Active Docusate Sodium 100 Mg Cap 100 Mg PO BID 15 Days Quetiapine (Quetiapine Fumarate) 200 Mg Tab 400 Mg PO HS 15 Days Quetiapine (Quetiapine Fumarate) 100 Mg Tab 100 Mg PO DAILY 15 Days Ferosul (Ferrous Sulfate) 325 Mg (65 Mg Iron) Tablet 325 Mg PO BID@17 15 Days Reported Abilify (Aripiprazole) 2 Mg Tab Unknown Dose PO DAILY Review of Systems ROS Limitations: Poor Historian Except as stated in HPI: all other systems reviewed are Neg Physical Exam Narrative GENERAL: Well-nourished, well-developed patient who is sleeping comfortably in no apparent distress. She does not smell of alcohol and her vital signs are normal. SKIN: Focused skin assessment warm/dry. No needle tracks nor wrist slash welch are present. HEAD: Normocephalic. EYES: No scleral icterus. No injection or drainage. NECK: Supple, trachea midline. No JVD or lymphadenopathy. No neck vein distention is present. CARDIOVASCULAR: Regular rate and rhythm without murmurs, gallops, or rubs. RESPIRATORY: Breath sounds equal bilaterally. No accessory muscle use. Lungs are clear bilaterally. GASTROINTESTINAL: Abdomen soft, non-tender, nondistended. No guarding or rebound is present. MUSCULOSKELETAL: No cyanosis, or edema. BACK: Nontender without obvious deformity. No CVA tenderness. Data Data Last Documented VS Vital Signs Date Time Temp Pulse Resp B/P (MAP) Pulse Ox O2 Delivery O2 Flow Rate FiO2 05/14/17 21:14 97.7 83 20 132/62 (85) 97 MDM Medical Decision Making Medical Screen Exam Complete: Yes Emergency Medical Condition: Yes Medical Record Reviewed: Yes Differential Diagnosis Malingering, pneumonia, intestinal infection, cardiac syndrome , acute psychosis Narrative Course The patient appears to be malingering to sleep in a bed. She does have psychiatric problems but she is not a danger to herself nor others. She does not have any chest pain, shortness of breath or any abdominal pain. She is medically cleared at this time. Diagnosis Primary Impression: Malingering Additional Instructions: Follow-up with the homeless [facility]. They can help you find a decent bed. Med/Other Pt SpecificInfo: No Change to Meds Disposition: 01 DISCHARGE HOME Condition: Stable Major Martinez MD May 15, 2017 00:39
[2017-05-15 00:40] VITALS: BP 119/56; PULSE 72; RESP 12; O2SAT 98
== END 2017-05-15 00:54 | disposition home or self-care (01) ==
LOC: PHED 21:12
DX: Z76.5 Malingerer [conscious simulation] (principal); F20.9 Schizophrenia, unspecified; F32.9 Major depressive disorder, single episode, unspecified; F41.9 Anxiety disorder, unspecified; Z59.0 Homelessness; Z72.0 Tobacco use
CPT/HCPCS: 99281

== ENCOUNTER 2017-05-17 03:38 | Emergency (ER) | payer OTHER ==
[~2017-05-17] VITALS: Ht 167.6 cm; Wt 65.0 kg
[2017-05-17 03:39] VITALS: BP 114/72; PULSE 62; RESP 16; TEMP 98.2; O2SAT 96
--- NOTE | 2017-05-17 04:04 | PD ---
HPI Chief Complaint: Pain: Acute or Chronic Time Seen by Provider: 04:01 Travel History International Travel<30 days: No Contact w/Intl Traveler<30days: No Traveled to known affect area: No History of Present Illness HPI 57-year-old female presents complaining of bilateral ankle pain. Started several days ago. She reports an aching pain in both ankles when she walks. She is currently homeless, has been walking quite a bit, carrying most of her belongings with her. She denies any acute injury to the ankles. The patient was seen at [facility] on May 14 with the chief complaint of requesting a place to sleep. She has no other complaints at this time. History Past Medical Histgory Tetanus Vaccination: Unknown LMP: menapause Past Surgical History Surgical History: No Previous Surgery Social History Alcohol Use: Yes (occ) Tobacco Use: Yes (OCC) Allergies-Medications (Allergen,Severity, Reaction): Coded Allergies: No Known Allergies (Unverified Adverse Reaction, Unknown, 05/14/17) Reported Meds & Prescriptions Reported Meds & Active Scripts Active Docusate Sodium 100 Mg Cap 100 Mg PO BID 15 Days Quetiapine (Quetiapine Fumarate) 200 Mg Tab 400 Mg PO HS 15 Days Quetiapine (Quetiapine Fumarate) 100 Mg Tab 100 Mg PO DAILY 15 Days Ferosul (Ferrous Sulfate) 325 Mg (65 Mg Iron) Tablet 325 Mg PO BID@ 15 Days Reported Abilify (Aripiprazole) 2 Mg Tab Unknown Dose PO DAILY Review of Systems General / Constitutional: No: Fever, Chills Musculoskeletal: Positive: Pain Skin: Positive Other (denies open wounds) Physical Exam Narrative GENERAL: Well-developed well-nourished female in no acute distress SKIN: Warm and dry. No open wounds, no bruising, no soft tissue swelling HEAD: Atraumatic. Normocephalic. EYES: Pupils equal and round. No scleral icterus. No injection or drainage. ENT: No nasal bleeding or discharge. Mucous membranes pink and moist. NECK: Trachea midline. No JVD. CARDIOVASCULAR: Regular rate and rhythm. No murmur appreciated. RESPIRATORY: No accessory muscle use. Clear to auscultation. Breath sounds equal bilaterally. GASTROINTESTINAL: Abdomen soft, non-tender, nondistended. Hepatic and splenic margins not palpable. MUSCULOSKELETAL: No obvious deformities. The patient is observed ambulating with no apparent difficulty. She has full range of motion of the lower extremities. There is no lower extremity edema. 2+ dorsalis pedis pulses bilaterally. NEUROLOGICAL: Awake and alert. No obvious cranial nerve deficits. Motor grossly within normal limits. Normal speech. Data Data Last Documented VS Vital Signs Date Time Temp Pulse Resp B/P (MAP) Pulse Ox O2 Delivery O2 Flow Rate FiO2 05/17/17 03:39 98.2 62 16 114/72 (86) 96 Room Air [facility] Medical Screen Exam Complete: Yes Emergency Medical Condition: No Narrative Course 57-year-old female presents complaining of bilateral ankle pain. I suspect her pain is secondary to walking long distances with all of her belongings. She is observed here ambulatory with no apparent discomfort. There is no emergent condition present and no emergent intervention required. A medical screening exam was performed: At the time of evaluation the presenting medical condition was determined not to be of an emergent nature. The patient was given the option of receiving additional care, but declined. Patient was given options for additional community resources from which to obtain care. The Patient Has Been advised to seek medical attention for their presenting complaint. The patient has been advised to return to the ER at any time if an emergent condition develops. Primary Impression: Encounter for medical screening examination Wes Stovall May 17, 2017 04:04
== END 2017-05-17 04:40 | disposition left against medical advice (07) ==
LOC: NEPD 03:38
DX: M25.571 Pain in right ankle and joints of right foot (principal); M25.572 Pain in left ankle and joints of left foot
CPT/HCPCS: 99281; 99282